=== PATIENT | male | born 2000 ===

== ENCOUNTER 2024-08-23 13:26 | Emergency (ER) | payer SELFPAY ==
[~2024-08-23] VITALS: Ht 182.9 cm; Wt 86.2 kg
== END 2024-08-23 15:26 | disposition home or self-care (01) ==
LOC: ER 13:26
DX: S56.912A Strain of unspecified muscles, fascia and tendons at forearm level, left arm, initial encounter (principal); Z59.89 Other problems related to housing and economic circumstances; W09.8XXA Fall on or from other playground equipment, initial encounter
CPT/HCPCS: 73090; 76882; 99284-25